=== PATIENT | male | born 1985 | race Hispanic/Latino ===

== ENCOUNTER 2018-07-12 23:59 | Emergency (ER) | payer BC, SELFPAY ==
[2018-07-13 00:09] VITALS: BP 133/96; PULSE 96; RESP 20; TEMP 37.1; O2SAT 99; BMI 33.9
[2018-07-13] MEDS: SODIUM CHLORIDE 0.9% 1,000 ML 1000 ML IV (00:32)
[2018-07-13] MEDS: ONDANSETRON 4 MG/2 ML INJ IV (00:32)
[2018-07-13] MEDS: KETOROLAC 30 MG/ML VIAL 15 MG IV (00:32)
--- NOTE | 2018-07-13 00:32 | PC.NURSE ---
toradol given from ED floor stock of 60mg/2ml
--- NOTE | 2018-07-13 00:36 | ED_ITS ---
HPI - Male Genitourinary General Chief complaint: Urogenital-Male Stated complaint: LEFT SIDE BACK PAIN AND VOMITING Time Seen by Provider: 07/13/18 00:00 Source: patient Mode of arrival: ambulatory Limitations: no limitations History of Present Illness HPI Narrative: 33-year-old male nonsmoker with history of kidney stones presents with sudden onset sharp and stabbing left flank pain with radiation around to his left hip which started about 2 hr ago. He denies provocation or palliation. When the pain becomes intense he becomes nauseated has vomited a few times. He denies any fever or chills. He denies any dysuria, frequency or urgency. States this feels very similar to prior episodes of kidney stones, the most recent of which was about 2-3 years ago patient denies any recent injury MD Complaint: other Onset (ago): hour(s) Duration: intermittent Location: left flank Radiation: left inguinal region Severity: similar to previous episodes Quality: burning and sharp Relieving factors: none Exacerbating factors: none Reports nausea/vomiting Related Data Home Medications Medication Instructions Recorded Confirmed No Known Home Medications 07/13/18 07/13/18 Previous Rx's Medication Instructions Recorded hydrocodone-acetaminophen 1 tab PO Q4-6H PRN #10 tab 07/13/18 ketorolac 10 mg PO Q6H PRN #14 tab 07/13/18 ondansetron 4 mg PO TID-QID PRN #10 tab 07/13/18 tamsulosin [Flomax] 0.4 mg PO DAILY #10 cap 07/13/18 Allergies Allergy/AdvReac Type Severity Reaction Status Date / Time No Known Drug Allergies Allergy Verified 07/13/18 00:13 Review of Systems Constitutional Denies chills, Denies fever(s), Denies lethargy and Denies weakness Eyes Denies change in vision, Denies eye discharge, Denies irritation and Denies loss of vision ENT Ears, Nose, Mouth, and Throat: Denies change in voice, Denies neck pain and Denies sore throat Cardiovascular Denies chest pain, Denies irregular heart rhythm, Denies lightheadedness, Denies palpitations, Denies dyspnea, Denies dyspnea on exertion and Denies orthopnea Respiratory Denies cough, Denies dyspnea, Denies dyspnea on exertion and Denies wheezing Gastrointestinal Gastrointestinal: Denies abdominal pain, Denies change in bowel habits, Denies diarrhea, Reports nausea and Reports vomiting Genitourinary Denies hematuria, Reports flank pain, Denies urinary incontinence and Denies urinary urgency Musculoskeletal Denies neck pain Integumentary/Breasts Denies pruritus, Denies erythema, Denies rash and Denies wounds Neurologic Denies confusion, Denies loss of vision and Denies weakness Psychiatric Denies anxiety, Denies confusion, Denies depression, Denies homicidal ideation a nd Denies suicidal ideation Endocrine Denies palpitations Hematologic/Lymphatic Denies easy bruising Allergic/Immunologic Denies wheezing PFSH Social History Smoking Status: Never smoker Social History Smoking Status: Never smoker Exam Narrative Exam Narrative: GENERAL: 33-year-old male appears stated age, obviously uncomfortable and holding his left flank. HEAD: Atraumatic. Normocephalic. No temporal or scalp tenderness. EYES: Pupils equal round and reactive. Extraocular motions intact. No scleral icterus. No injection or drainage. ENT: Nose without bleeding, purulent drainage or septal hematoma. Throat without erythema, tonsillar hypertrophy or exudate. Uvula midline. Airway patent. NECK: Trachea midline. No JVD or lymphadenopathy. Supple, nontender, no meningeal signs. CARDIOVASCULAR: Regular rate and rhythm without murmurs, gallops, or rubs. RESPIRATORY: Clear to auscultation. Breath sounds equal bilaterally. No wheezes, rales, or rhonchi. GASTROINTESTINAL: Abdomen soft, non-tender, nondistended. No hepato- splenomegaly, or palpable masses. No guarding. EXTREMITIES: No clubbing, cyanosis, or edema. No joint tenderness, effusion, or edema noted. BACK: Nontender without deformity or crepitance. No flank tenderness. NEURO: AOx3. SKIN: No rash or erythema. Initial Vital Signs Initial Vital Signs: Vital Signs Temperature 98.7 F 07/13/18 00:09 Pulse Rate 96 H 07/13/18 00:09 Respiratory Rate 20 07/13/18 00:09 Blood Pressure 133/96 H 07/13/18 00:09 Pulse Oximetry 99 07/13/18 00:09 Course Orders Ordered: ED Orders 07/13/18 00:20 Basic Metabolic Panel Stat Complete Blood Count AUTO DIFF Stat 07/13/18 00:30 Urine Microscopic Stat Discontinued Medications Hydrocodone Bitart/Acetaminophen (Vicodin Prepack) 1 bottle MISC SEEINSTR ONE Stop: 07/13/18 01:14 Sodium Chloride (Normal Saline 0.9%) 1,000 mls @ 1,000 mls/hr IV BOLUS ONE Stop: 07/13/18 01:06 Last Admin: 07/13/18 00:32 Dose: 1,000 mls/hr Ketorolac Tromethamine (Toradol) 15 mg IV NOW ONE Stop: 07/13/18 00:08 Last Admin: 07/13/18 00:32 Dose: 15 mg Ondansetron HCl (Zofran) 4 mg IV NOW ONE Stop: 07/13/18 00:08 Last Admin: 07/13/18 00:32 Dose: 4 mg Ondansetron HCl (Zofran Odt Prepack) 1 bottle [facility] [place] ONE Stop: 07/13/18 01:14 Vital Signs - 8 hr 07/13/18 00:09 Temperature 98.7 F Pulse Rate 96 H Respiratory Rate 20 Blood Pressure 133/96 H Pulse Oximetry 99 MDM - Male Genitourinary Lab Data Result diagrams: 07/13/18 00:20 07/13/18 00:20 Lab Results 07/13/18 07/13/18 07/13/18 Range/Units 00:20 00:20 00:30 WBC 11.4 H (4.5-11.0) X10^3/uL RBC 5.48 (4.5-5.9) X10^6/uL Hgb 13.3 L (13.5-17.5) g/dL Hct 40.6 L (41-53) % MCV 74.1 L (80-100) fL MCH 24.3 L (26-34) PG MCHC 32.7 (30-36) % RDW 14.7 (11.6-14.8) % Plt Count 287 (150-400) X10^3/uL Neut % (Auto) 65.4 (50-75) % Lymph % (Auto) 24.7 L (25-40) % Love % (Auto) 6.8 (3-14) % Eos % (Auto) 2.5 (2-4) % Baso % (Auto) 0.6 (0-2) % Neut # (Auto) 7400 H (9981-0042) /uL Lymph # (Auto) 2800 (7166-1618) /uL Love # (Auto) 800 (0-900) /uL Eos # (Auto) 300 (0-450) /uL Baso # (Auto) 100 (0-100) /uL Sodium 140 (137-145) mmol/L Potassium 3.4 (3.4-5.1) mmol/L Chloride 103 (98-107) mmol/L Carbon Dioxide 26 (22-32) mmol/L BUN 22 H (9-20) mg/dL Creatinine 1.00 (0.66-1.25) mg/dL Estimated GFR > 60.0 (>60) mL/min BUN/Creatinine Ratio 22.0 (6-22) Glucose 136 H (70-100) mg/dL Calcium 9.1 (8.4-10.2) mg/dL Urine RBC 30-100/hpf H (0-5/HPF) Urine WBC 0-1/hpf (0-5/HPF) Ur Squamous Epith Cells 0-1 /hpf Urine Bacteria Occasional (0-1) (None) Urine Mucus 1+ H (Negative) Ur Culture Indicated? Cult not indicated Urine Dip Bedside Urine Glucose Negative Bedside Urine Bilirubin - Negative Bedside Urine Ketone +/- 5 Urine Specific [place] 1.025 Bedside Urine Occult Blood +++ Bedside Urine pH 6.0 Bedside Urine Protein +/- 15 Bedside Urine Urobilinogen - Negative Bedside Urine Nitrite - Negative Bedside Urine Leukocytes - Negative Esterase MDM Narrative Medical decision making narrative: 33-year-old male with flank pain in the absence of provocation or palliation. He cannot find a position of comfort. He has a history of kidney stones and states this feels the same. Urine shows blood. Pain greatly improved with Toradol. No sign of UTI or renal failure. Discussed with patient the vast majority stones will pass on their own and that imaging is unlikely to change the disposition. He has had his questions answered to his apparent satisfaction and is otherwise well and free of complaint Discharge Plan Departure Patient Disposition: Home Clinical Impression: Renal colic on left side Instructions: Kidney Stones -- Adult Activity Restrictions/Additional Instructions: *You have been diagnosed with [ kidney stone with renal colic] *What to do: *Take medications as directed *Follow up with your primary care provider in 2-3 days, call for an appointment. Let them know you were seen in the Emergency Department and that we ask that you be seen in follow up *Return to ER if you should have any new, worsening or concerning symptoms Prescriptions: New hydrocodone-acetaminophen 5-325 mg tablet 1 tab PO Q4-6H PRN (Reason: pain) Qty: 10 RF: 0 ketorolac 10 mg tablet 10 mg PO Q6H PRN (Reason: pain) Qty: 14 RF: 0 tamsulosin [Flomax] 0.4 mg capsule 0.4 mg PO DAILY Qty: 10 RF: 0 ondansetron 4 mg tablet,disintegrating 4 mg PO TID-QID PRN (Reason: nausea and vomiting) Qty: 10 RF: 0 No Action No Known Home Medications RF: 0 Referrals: Rodolfo Barney MD [Non-Staff] -
[2018-07-13 00:39] LABS: Add Manual Diff / Slide Review NO; Basophils Absolute Auto 100 /uL (0-100); Basophils Percent Auto 0.6 % (0-2); Eosinophils Absolute Auto 300 /uL (0-450); Eosinophils Percent Auto 2.5 % (2-4); Hematocrit 40.6 % (41-53); Hemoglobin 13.3 g/dL (13.5-17.5); Lymphocytes Absolute Auto 2800 /uL (1100-4500); Lymphocytes Percent Auto 24.7 % (25-40); Mean Corpuscular HGB Conc 32.7 % (30-36); Mean Corpuscular Hemoglobin 24.3 PG (26-34); Mean Corpuscular Volume 74.1 fL (80-100); Monocytes Absolute Auto 800 /uL (0-900); Monocytes Percent Auto 6.8 % (3-14); Neutrophils Absolute Auto 7400 /uL (1500-7000); Neutrophils Percent Auto 65.4 % (50-75); Platelet Count 287 X10^3/uL (150-400); Red Blood Cell Count 5.48 X10^6/uL (4.5-5.9); Red Cell Distribution Width 14.7 % (11.6-14.8); White Blood Cell Count 11.4 X10^3/uL (4.5-11.0)
[2018-07-13 00:44] LABS: Blood Urea Nitrogen 22 mg/dL (9-20); Calcium 9.1 mg/dL (8.4-10.2); Carbon Dioxide 26 mmol/L (22-32); Chloride 103 mmol/L (98-107); Estimated Glomerular Filt Rate > 60.0 mL/min (>60); Glucose 136 mg/dL (70-100); HEMOLYSIS 17 (0-50); Potassium 3.4 mmol/L (3.4-5.1); Sodium 140 mmol/L (137-145)
[2018-07-13 01:50] LABS: Bacteria Urine Occasional (0-1); Mucus Urine 1+ (Negative); RBC Urine 30-100/HPF (0-5/HPF); Squamous Epithelial Cell Urine 0-1 /HPF; WBC Urine 0-1/HPF (0-5/HPF)
[2018-07-13 01:51] LABS: Culture Indicated Urine Cult Not Indicated
[2018-07-13] MEDS: HYDROCODONE/ACET 5/325 PREPACK 1 BOTTLE MISC (03:13)
[2018-07-13] MEDS: ONDANSETRON 4 MG ODT PREPACK 1 BOTTLE MISC (03:13)
[2018-07-13 03:24] VITALS: BP 125/80; PULSE 92; RESP 20; O2SAT 99
== END 2018-07-13 03:19 | disposition home or self-care (01) ==
PROVIDERS: Emergency Provider Emergency Medicine
DX: N23 Unspecified renal colic (principal)
CPT/HCPCS: 36591; 80048; 81003; 81015; 85025; 96361; 96374; 96375; 99283; 99284; J1885; J2405